=== PATIENT | male | born 1990 ===

== ENCOUNTER 2017-08-08 04:12 | Emergency (ER) | payer OTHER ==
[2017-08-08 04:27] VITALS: TEMP 97.8
[2017-08-08] MEDS ORDERED: ALUMINUM/MAGNESIUM 30 ML SUS PO ONE (04:35)
[2017-08-08] MEDS ORDERED: LIDOCAINE HCL 2% (VISCOUS) 20 ML SOL MT ONE (04:35)
[2017-08-08] MEDS ORDERED: ALUMINUM/MAGNESIUM 30 ML SUS ONE (04:39)
[2017-08-08] MEDS ORDERED: LIDOCAINE HCL 2% (VISCOUS) 20 ML SOL ONE (04:39)
[2017-08-08 05:09] LABS: BASOPHILS % (AUTO) 1 % (0-3); EOSINOPHILS % (AUTO) 0 % (0-9); HEMATOCRIT 50 % (39-53); LYMPHOCYTES % (AUTO) 31.6 % (10-50); MEAN CORPUSCULAR HEMOGLOBIN 31.3 pg (27.0-32.0); MEAN CORPUSCULAR HGB CONC 35.9 gm/dl (32.0-36.0); MEAN CORPUSCULAR VOLUME 87 fL (80-100); MONOCYTES % (AUTO) 7.3 % (0-12); NEUTROPHILS % (AUTO) 59.5 % (37-80)
[2017-08-08 05:22] LABS: AMPHETAMINES POSITIVE (NEGATIVE); BARBITUATES NEGATIVE (NEGATIVE); BENZODIAZEPINES NEGATIVE (NEGATIVE); CANNABINOL(THC) POSITIVE (NEGATIVE); COCAINE(COC) NEGATIVE (NEGATIVE); METHADONE NEGATIVE (NEGATIVE); METHAMPHETAMINES POSITIVE (NEGATIVE); OPIATES(OP13) NEGATIVE (NEGATIVE); OXYCODONE(OXY) NEGATIVE (NEGATIVE); PROPOXYPHENE(PPX) NEGATIVE (NEGATIVE); TRICYCLIC ANTIDEPRESSANTS NEGATIVE (NEGATIVE)
[2017-08-08 05:27] LABS: ALBUMIN 4.5 gm/dl (3.4-5.0); ALCOHOL 0.148 gm/dl (0.000-0.08); BILIRUBIN,TOTAL 0.4 mg/dl (0.2-1.0); CALCIUM 8.9 mg/dl (8.5-10.1); CARBON DIOXIDE 27.7 mEq/L (21-32); CREATININE 0.95 mg/dl (0.80-1.30); POTASSIUM 3.6 mMol/L (3.5-5.1); THYROID STIMULATING HORMONE 1.74 uIU/ml (0.358-3.740); TOTAL PROTEIN 8.4 gm/dl (6.4-8.2)
[2017-08-08 08:13] VITALS: RESP 20
[2017-08-08 11:29] VITALS: BP 132/70; PULSE 81; O2SAT 99
== END 2017-08-08 11:25 | disposition home or self-care (01) | DRG 897 ==
LOC: ED 04:12
DX: F19.10 Other psychoactive substance abuse, uncomplicated (principal); F15.90 Other stimulant use, unspecified, uncomplicated; R41.0 Disorientation, unspecified
CPT/HCPCS: 36415; 80053; 80305; 80307; 84443; 85025; 99283; A9270-GY